=== PATIENT | male | born 1970 | race Caucasian/White ===

== ENCOUNTER 2025-05-11 08:55 | Emergency (ER) | payer OTHER, SELFPAY ==
[2025-05-11 09:01] VITALS: BP 136/91
--- NOTE | 2025-05-11 09:27 | ED.GENMED ---
History of Present Illness
General
Chief Complaint: Musculo-Skeletal Complaint
Source: patient and spouse
Exam Limitations: none
Time Seen by Provider: 05/11/25 09:09
Nursing documentation reviewed up to this point in time: agreed with
History of Present Illness
History of Present Illness:
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
and externally rotate, no direct trauma did not hear a pop no rash no insect bites, had a frozen shoulder on the left that responded to steroid injection previously he would like to have a steroid injection today if possible indicated,
Past History
Past History
ED Past Surgical History: Other (Left shoulder injection)
Social History
Tobacco: Non-smoker
Alcohol: None
Drug: None
Personal:
Living: with family
Employment: Employed
Review of Systems
Review of Systems
All Other Systems: Not applicable
Constitutional: Denies fever or chills
ABD/GI: Reports no symptoms
: Reports no symptoms
Neurological: Reports weakness (Due to pain. Functional)
Phy Exam
Physical Exam
Physical Exam:
Physical Exam
General: no apparent distress, not acutely ill
Neck: No jaundice
Heart: Regular
Lungs: no acute respiratory distress.
Neuro: alert and oriented. no focal neurological deficits
Skin: no rash
Psychiatric: well kept. interactive and cooperative
Extremities: Pain with active and passive range of motion right shoulder no crepitance no strong radial pulse
Course
Orders/Labs/Results
Orders:
Orders
05/11/25 09:13
Shoulder, Right 2 Views [CR Shoulder - Right Min 2 View] Urgent
Comment:
Reason For Exam: pain
05/11/25 09:24
Oxycodone/Acetaminophen [Percocet 5/325] 1 tablet PO NOW STA
05/11/25 09:29
Triamcinolone Injectable [Kenalog-40] 40 mg INTRAARTIC NOW STA
05/11/25 09:54
Sling Right-Treatment ONCE
Vital Signs
Initial and Last Documented VS:
Initial Vital Signs
Temp Pulse Resp BP Pulse Ox
98.4 F 80 18 136/91 99
05/11/25 09:01 05/11/25 09:01 05/11/25 09:01 05/11/25 09:01 05/11/25 09:01
Last Documented Vital Signs
Temp Pulse Resp BP Pulse Ox
98.4 F 80 18 136/91 99
05/11/25 09:01 05/11/25 09:01 05/11/25 09:01 05/11/25 09:01 05/11/25 09:31
Procedures
Incision/Drainage/Joint Aspiration
Right Shoulder:
Anethesia: ethyl chloride
Preparation: cleaned with Betadine
Type of procedure: injection
Additional information:
Verbal consent, timeout, sterile technique, 30 mg of Kenalog/1 cc of lidocaine without epi 1 cc of Marcaine injected right shoulder via anterior lateral
MDM/Problems Addressed
Differential Diagnosis Includes:
Tendinitis rotator cuff injury doubt fracture or dislocation possibly overuse
MDM/Problems Addressed:
Shoulder pain
*Pulse Oximetry
SaO2: 99
Oxygen Mode of Delivery: Room air
Patient hypoxic: no
*Critical Care Note
Total Time (30-74mins, 75-104mins- exclusive of procedures): Not Applicable
Update Note
Update Note:
X-ray looks like calcific tendinitis, patient requested an injection which is not unreasonable completed without difficulty will have him follow-up with orthopedics his son sees Dr. Webber
ED Attending Note
-
Portions of this chart may have been created with voice recognition software.� Occasional wrong word or��sound alike� substitutions may have occurred due to the inherent limitations of voice recognition software.
Discharge Plan
Departure
Patient Disposition: Home (Routine Discharge)
Date of Disposition: 05/11/25
Time of Disposition: 09:56
Patient with high blood pressure during this ER visit?: No
Condition: Good
Discharge Problem:
Right shoulder tendinitis
Instructions: Ibuprofen, How to Use a Shoulder Sling
Prescriptions:
New
ibuprofen 600 mg tablet
600 mg PO Q6H PRN (Reason: Pain) Qty: 20 0RF
Referrals:
Fabienne Hall MD [Family Provider, Family Practice]
Sulaiman Webber MD [Active, Orthopedics] - Next open appointment
Activity Restrictions/Additional Instructions:
Use sling, exercise your shoulder a few times a day to help prevent adhesive capsulitis/frozen shoulder
Follow-up with [facility] orthopedics
Interventions
Interventions:
*Risk Screen - Suicide Last Done: 05/11/25 09:04
*General Assessment Last Done: 05/11/25 09:12
*Neglect/Abuse Screening Last Done: 05/11/25 09:04
*ED- Fall Risk Assessment Last Done: 05/11/25 09:12
*ED COVID-19 Vaccine History Last Done: 05/11/25 09:12
ED-Musculoskeletal Assessment Last Done: 05/11/25 09:30
Discharge Date and Time
Print Language: YORUBA
[2025-05-11] MEDS: PERCOCET 5/325 1 TABLET PO (09:31)
[2025-05-11] MEDS: KENALOG-40 40 MG INTRAARTIC (09:53)
[2025-05-11 10:08] VITALS: BP 123/95
== END 2025-05-11 10:09 | disposition home or self-care (01) ==
LOC: EMR 08:55
PROVIDERS: EMERGENCY PHYSICIAN Emergency Medicine; FAMILY PHYSICIAN Family Medicine
DX: M75.91 Shoulder lesion, unspecified, right shoulder (principal)
CPT/HCPCS: 99283; 73030